=== PATIENT | female | born 1950 | race Caucasian/White ===

== ENCOUNTER → 2016-10-20 | Day surgery (SDC) | payer OTHER ==
[~2016-10-20] VITALS: Ht 154.9 cm; Wt 104.3 kg
[~2016-10-20] MED LIST: LISINOPRIL10 M1 PO; OMEPRAZOLE40 M1 PO
--- NOTE | 2016-10-20 10:16 | Operative Report ---
Operative/Inv Procedure Report Surgery Date: 10/20/16 Name of Procedure: RECTOCELE/enterocele repair with mesh, urethral sling, cytoscopy, bilateral stent placement Pre-Operative Diagnosis: rectocele and enterocele grade 3-4 stress incontinence Hx of bilateral ureteral reimplants Post-Operative Diagnosis: same Estimated Blood Loss: 200cc Surgeon/Mock Up Maker: ZI HUNTLEY MD Anesthesia: general endotracheal tube Implants: vaginal mesh Drains: 6x22cm stents bilaterally Specimens: none Complications: none Condition: stable Operative Indication: rectocele and enterocele with constipation and vaginal bulge stress incontinence Operative/Procedure Note Note: 66yo female with a history of vaginal bulge and constipation with stress incontinence. She is very bothered by the constipation issues. She was given the option of pesary management versus surgery and she opted for surgery. She was given the risks, benefits and alternatives of the surgery including using permanent mesh vs porcine mesh. The risks of possible ureteral injury were also discussed given her history of bilateral ureteral reimplants. All questions were answered for her and her . Patient was taken to the operating room and placed in the supine position. Time out was performed and IV antibiotics of 2gm kefzol were infused. She was placed in the dorsal lithotomy position and prepped and draped in the standard fashion after being shaved. She had a cytoscopy performed first and the bladder was globally examined. The ureteral orifices were near the normal anatomic location. The bladder had no defects, lesions or masses. The sensor wire was used to cannulate the right ureter first and had some minor bowing but then the wire passed easily. THe 6x22cm stent was passed over it and placed without difficulty. The same was performed on the left side. The stents were in good position. Radiology was called to have images taken to ensure proper positioning of the stents. The urethral sling portion of the case was then started. The bladder was drained with a 16fr cox and left in place. 0.5% marcaine with epinephrine wa then infiltrated into the anterior vaginal wall suburethrally. An incision was made suburethrally. The vaginal flaps were created taking care not to injure the urethra. The Altis sling kit was then opened and the trocars provided was used to place the left side of the sling first into the obturator fascia. The right side was then placed. The tightening prolene suture was then tightened and the sling was seen to be in a nice flat orientation and accommodated a debakey clamp between the sling and the urethra easily. The area was copiously irrigated and the incision was closed with a running 3-09 vicryl suture. The rectocele and enterocele portion of the case was then started. A Lonestart retractor was placed with six stays. The posterior vaginal wall was then infiltrated with the 0.5% marcaine with epinephrine to allow hydrodistention and hemostasis. An incision was made transversely in the forchetter. The posterior vaginal wall was then carefully dissected free from the underlyiong rectum and intestines, periodic rectal exams were performed to ensure no injury to the rectum or intestines. The retroperitoneum was entered bluntly with the index finger taking care not to injure the rectum or intestines. The SSL were palpated and cleaned off bilaterally. The thin capio device was then used with [address] the SSL sutures and the distal fascia sutures. Once this was done, methylene blue was infused to later check for the patency of the ureteral orifices. The mesh was secured proximally with a 2-0 vicryl suture. The four prolene sutures were tied down after placing a few interrruped fascial sutures to reduce the rectocele. The mesh was seen to be in good position and extra interrrupted sutures were placed to allow the mesh to be in a flat orientation. The area was copiously irrigated with bacitracin irrigation and then closed using running 2-0 vicryl sutures x3 followed by a 3-0 vicryl in the posterior forchetter area. A cystoscopy was performed and the ureters effluxed urine bilaterally with good force. The bladder was emptied. Vaginal packing impregnated with bacitracin ointment was placed into the vaginal vault. The sponge and needle count were correct at the end of the case. The patient tolerated the procedure well. Findings: rectocele grade 3-4 enterocele grade 3 no mesh in bladder , urethra, or vaginal fornices. no rectal or interstinal or urethral injuries good efflux bilaterally from ureteral orifices Discharge Disposition: PACU
--- NOTE | 2016-10-21 16:48 | RADIOLOGY REPORT ---
EXAMINATION: XR ABDOMEN/INTRAOPERATIVE FLUOROSCOPY: CLINICAL INDICATION: Stent insertion. COMPARISON: None TECHNIQUE/FINDINGS: Intraoperative fluoroscopy was provided for the performance of a urethral sling, rectocele and enterocele repair with mesh and stent insertion. 3 fluoroscopic spot films were obtained and are archived in PACS. Bilateral double-J ureteral stents in place with proximal pigtails in region of the renal pelvis and distal pigtails in region of the bladder. FLUOROSCOPY TIME: 4.4 seconds. IMPRESSION: Administrative dictation for intraoperative fluoroscopy and image archiving in PACS. Please refer to operative notes for details of the procedure.
== END ==
LOC: STS 04:04
DX: N39.46 Mixed incontinence (principal); N81.6 Rectocele; N81.5 Vaginal enterocele; I10 Essential (primary) hypertension; E66.01 Morbid (severe) obesity due to excess calories; Z68.41 Body mass index [BMI] 40.0-44.9, adult
CPT/HCPCS: 74000; C1771; C2617; C9399; J0131; J0690; J1100; J1885; J2250; J2405